=== PATIENT | female | born 2000 | race Caucasian/White ===

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

== ENCOUNTER 2020-12-22 01:59 | Emergency (ER) | payer MEDICAID ==
[~2020-12-22] VITALS: Ht 162.6 cm; Wt 63.6 kg
[~2020-12-22 01:59] MED LIST changes: -DICL100G15 TOP; +NORE1TAB23 PO
[2020-12-22 02:02] VITALS: BP 114/70
[2020-12-22] MEDS ORDERED: diphenhydrAMINE 25mg capsule PO ONE (02:35)
--- NOTE | 2020-12-22 02:43 | NUR ---
ruth wrap applied. cms intact
== END 2020-12-22 02:50 | disposition home or self-care (01) ==
LOC: ER 01:59
DX: S90.861A Insect bite (nonvenomous), right foot, initial encounter (principal); Z88.8 Allergy status to other drugs, medicaments and biological substances; Z79.899 Other long term (current) drug therapy; W57.XXXA Bitten or stung by nonvenomous insect and other nonvenomous arthropods, initial encounter; Y93.89 Activity, other specified; Y92.89 Other specified places as the place of occurrence of the external cause; Y99.8 Other external cause status
CPT/HCPCS: 99282; Q0163

== ENCOUNTER 2022-04-16 14:30 | Emergency (ER) | payer MEDICAID ==
[~2022-04-16] VITALS: Ht 162.6 cm; Wt 67.0 kg
[2022-04-16 14:32] VITALS: BP 124/89
[2022-04-16] MEDS ORDERED: MAGN296S70 PO (16:18)
[2022-04-16] MEDS ORDERED: CALC625T62 PO (16:18)
== END 2022-04-16 16:48 | disposition home or self-care (01) ==
LOC: ER 14:31
DX: K59.00 Constipation, unspecified (principal); Z91.018 Allergy to other foods
CPT/HCPCS: 74018; 99283